=== PATIENT | female | born 1965 | race Caucasian/White ===

== ENCOUNTER 2024-03-16 11:47 | Day surgery (SDC) | payer OTHER ==
[~2024-03-16] VITALS: Ht 165.1 cm; Wt 94.0 kg
[~2024-03-16 11:47] MED LIST: Lactated Ringer's 1,000 ML IV ONE
[2024-03-16] MEDS ORDERED: CLIMARA1 EACH (12:53)
[2024-03-16] MEDS ORDERED: MIRT30 (12:53)
[2024-03-16] MEDS ORDERED: OMEP20ER (12:53)
[2024-03-16] MEDS ORDERED: GABA100 (12:53)
[2024-03-16] MEDS ORDERED: MYCO250 (12:54)
[2024-03-16] MEDS ORDERED: FLUO10 (12:54)
[2024-03-16] MEDS ORDERED: Bentyl10 MG (12:54)
[2024-03-16] MEDS ORDERED: Robaxin750 MG (12:55)
[2024-03-16] MEDS ORDERED: FLUOXETINE HCL20 M1 (12:56)
[2024-03-16] MEDS ORDERED: EUTHYROX50 MCG (12:57)
[2024-03-16] MEDS ORDERED: EPIPEN0.3 MG/0.3 (12:58)
[2024-03-16] MEDS ORDERED: Metrocream45 GM (12:59)
[2024-03-16] MEDS ORDERED: Lidocaine 2% Viscous Soln 15 ML UDC ONE (13:12)
[2024-03-16] MEDS ORDERED: Lactated Ringer's 1,000 ML IV ONE (14:00)
== END 2024-03-16 14:46 | disposition home or self-care (01) ==
LOC: ORSCSDS 11:47
DX: D50.9 Iron deficiency anemia, unspecified (principal); R13.10 Dysphagia, unspecified; R11.0 Nausea; K59.00 Constipation, unspecified; M35.9 Systemic involvement of connective tissue, unspecified; Z86.0100 Personal history of colon polyps, unspecified; G47.33 Obstructive sleep apnea (adult) (pediatric); J45.909 Unspecified asthma, uncomplicated; K21.9 Gastro-esophageal reflux disease without esophagitis; F41.9 Anxiety disorder, unspecified; E07.9 Disorder of thyroid, unspecified; Z79.899 Other long term (current) drug therapy
CPT/HCPCS: A9270; J7120